=== PATIENT | female | born 1980 | race Caucasian/White ===

== ENCOUNTER 2018-09-28 07:25 | Inpatient (IN) | payer BC ==
[~2018-09-28 07:25] MED LIST: Buffered Lidocaine 1% SYRIN* 1 ML/SYRINGE INTRADERM ONE; Dexamethasone IV* 4 MG/ML 1 ML (4 MG) IV SLOW PU ONE; Famotidine IV* 10 MG/ML 2 ML (20 mg) IV ONE; Lactated Ringers 1000 ML Bag* 1,000 ML IV SCH
[2018-09-28] MEDS ORDERED: fentaNYL* 50 MCG/ML 5 ML VIAL (250 MCG VIAL) ONE (08:09)
[2018-09-28] MEDS ORDERED: Rocuronium* 10 MG/ML VIAL ONE (08:10)
[2018-09-28] MEDS ORDERED: Propofol* 10 MG/ML 20 ML BTL ONE (08:10)
[2018-09-28] MEDS ORDERED: Ondansetron INJ* 2 MG/ML VIAL ONE (08:10)
[2018-09-28] MEDS ORDERED: Lidocaine 2% PF * 5 ML VIAL ONE (08:10)
[2018-09-28] MEDS ORDERED: Ketorolac INJ* 30 MG/ML 1 ML VIAL ONE (08:10)
[2018-09-28] MEDS ORDERED: Midazolam* 1 MG/ML 5 ML VIAL (5 MG) ONE (08:10)
[2018-09-28] MEDS ORDERED: Clindamycin 900 MG/D5W BAG(*) 900 MG/50 ML BAG IVPB ONE ×2 (08:18→09:27)
[2018-09-28] MEDS ORDERED: Famotidine IV* 10 MG/ML 2 ML (20 mg) ONE (08:18)
[2018-09-28] MEDS ORDERED: Dexamethasone IV* 4 MG/ML 1 ML (4 MG) ONE (08:18)
[2018-09-28] MEDS ORDERED: Ciprofloxacin 400MG IVPREMIX(* 400 MG/200 ML BAG ONE (08:19)
[2018-09-28] MEDS ORDERED: Heparin VIAL(*) 5000 UNITS/ML VIAL (FIVE THOUSAND) ONE (08:20)
[2018-09-28] MEDS ORDERED: Neostigmine Methylsulfate* 1 MG/ML 10 ML VIAL (1 mg/ml) ONE (08:30)
[2018-09-28] MEDS ORDERED: Glycopyrrolate IV* 0.2 MG/ML 1 ML VIAL ONE ×2 (08:30→09:41)
[2018-09-28] MEDS ORDERED: Methylene Blue 0.5 %* 50 MG/10 ML AMP IV ONE (09:02)
[2018-09-28] MEDS ORDERED: Bupivacaine 0.25% W/EPI* 10 ML SDV ONE ×2 (09:02→09:47)
[2018-09-28] MEDS ORDERED: Sugammadex * 200 MG/2 ML VIAL IV PUSH ONE (09:03)
[2018-09-28] MEDS ORDERED: fentaNYL* 50 MCG/ML 2 ML VIAL (100 MCG VIAL) ONE ×3 (09:54→12:16)
[2018-09-28] MEDS ORDERED: Ondansetron INJ* 2 MG/ML VIAL IV PRN (10:19)
[2018-09-28] MEDS ORDERED: Scopolamine 1.5 mg* PATCH TRANSDERM PRN (10:19)
[2018-09-28] MEDS ORDERED: HYDROmorphone INJ1* 1 MG/ML SYRINGE IV PRN (10:19)
[2018-09-28] MEDS ORDERED: DiMENhydriNATE IV* 50 MG/ML VIAL IV PUSH PRN (10:19)
[2018-09-28] MEDS ORDERED: Naloxone* 0.4 MG/ML 1 ML VIAL IV PRN (10:19)
--- NOTE | 2018-09-28 12:00 | OP ---
Operative Report - Blank - Operative Report Date of Operation: 09/28/18 Note: Brief Operative Note Preop Dx: Morbid obesity Postop Dx: same Procedure: laparoscopic sue en y gastric bypass Anesthesia: GET Surgeon: Vik Inspector Hairspring: RAJNI Smith; LISA Dawkins Fluids: 1600 ml crystalloid EBL: 60 ml Specimen: none Drains: none Findings: dictated
[2018-09-28] MEDS ORDERED: Acetaminophen ADULT LIQ* 650 MG/20.3 ML UDC PO PRN (12:03)
[2018-09-28] MEDS ORDERED: Mometasone/Formoter 200/5 MDI INH PRN (12:09)
[2018-09-28] MEDS ORDERED: Albuterol HFA INHALER* 8 gm MDI INH PRN (12:09)
[2018-09-28] MEDS: fentaNYL* 50 MCG/ML 2 ML VIAL (100 MCG VIAL) IV PRN ×2 (12:17→12:39)
[2018-09-28] MEDS ORDERED: DiMENhydriNATE IV* 50 MG/ML VIAL ONE (13:30)
[2018-09-28] MEDS: Lactated Ringers 1000 ML Bag* 1,000 ML IV SCH ×2 (13:54→20:46)
[2018-09-28] MEDS: Ondansetron INJ* 2 MG/ML VIAL IV PRN (14:50)
[2018-09-28] MEDS: Ketorolac INJ* 30 MG/ML 1 ML VIAL IV PRN (16:50)
[2018-09-28] MEDS: Morphine INJ* 2 MG/ML 1 ML SYRINGE (TWO MG - NEW SYRINGE VERSION) IV PRN ×3 (17:31→22:52)
--- NOTE | 2018-09-28 20:43 | OP ---
CC: [facility]; Dr. Demetrius Cummings * DATE OF OPERATION: 09/28/18 - ROOM #339 DATE OF : 82 SURGEON: Karri Chery MD IC ENGINEER: LISA Rolon ANESTHESIOLOGIST: Dr. Peralta. ANESTHESIA: General anesthesia. PRE-OP DIAGNOSIS: Clinically severe obesity. POST-OP DIAGNOSIS: Clinically severe obesity. OPERATIVE PROCEDURE: Laparoscopic Michelet-en-Y gastric bypass. ESTIMATED BLOOD LOSS: 60 cc. FLUIDS: 1600 cc of crystalloid fluid given. SPECIMEN: None. DRAINS: None. DESCRIPTION OF PROCEDURE: The patient was identified in the preoperative area, she was marked, consent was signed after discussion of the case with her and her , including diagrams. The patient was then brought to the operating room, placed on the operating table in the supine position. Preoperative antibiotics were given. Sequential devices were placed on bilateral lower extremities and general anesthesia was induced. The patient's abdomen was prepped and draped in the standard surgical fashion and a time-out was performed. Folds of the umbilicus were elevated anteriorly and a Veress needle inserted into the abdominal cavity, which was then allowed to insufflate to a pressure of 15 mmHg. The patient tolerated the insufflation well. Calhoun between the xiphoid and the umbilicus, a 12 mm trocar was inserted. Laparoscope was inserted through this and there was no evidence of injury from the trocar insertion over the Veress needle which was then removed. Additional 12 mm and 5 mm trocars were placed in the left upper quadrant and 5 mm and 12 mm in the right upper quadrant. A review of the abdomen showed normal- appearing bowel, no free fluid, liver was within normal limits. We then placed a Lio retractor through a subxiphoid incision and retracted the liver anteriorly to the right, exposing the gastro-esophageal fat pad. This fat pad was grasped and retracted towards the right lower quadrant. Blunt dissection along with sharp dissection was carried out to expose the left stanton. Next, attention was turned towards the lesser curvature. At approximately the third crossing vessel, a retrogastric tunnel was made and a 45 mm luque FRANK stapling device was fired along this. We completed the stomach pouch with 2 additional 60 mm luque FRANK stapling devices. We did cross these at the mid portion of the first staple line and extended this towards the left stanton and performed this over an Thomas tube for resizing purposes. We used a hemoclip to gain hemostasis at the lesser curvature staple line, and then next, we retracted the omentum cephalad. Transverse colon was identified and ligament of Treitz clearly identified. Approximately 45 cm was counted off from the ligament of Treitz, this would become the biliopancreatic limb in the appropriate orientation, the antimesenteric aspect of it was sutured to the stapled edge of the stomach pouch. The stay sutures were in place to help with the gastrojejunostomy anastomosis which was performed after making an enterotomy and gastrotomy with a 30 mm luque FRANK stapling device. These were mated and we fired almost the entire cartridge. The opening was wide open without evidence of bleeding. We then sutured the common defect with interrupted 3-0 PDS sutures starting at both ends and tying them in the middle. Next, the Thomas tube was placed through the anastomosis with ease into the Michelet limb. Next, we transected the small bowel just at the site of the gastrojejunostomy with 60 mm luque FRANK stapling device and then next the anastomosis was tested using methylene blue through the Thomas tube after placing a gauze behind the anastomosis. Obstructing at the proximal Michelet limb in a standard fashion, we injected methylene blue which remained in the intraluminal throughout and I did distend the proximal Michelet limb and the small portion of the stomach pouch with ease. No leaking was identified and gauze was removed. Review of the cut staple end of the gastric remnant showed an area of oozing. Hemoclip was placed to this. Similarly, we saw an area on the staple line of the pouch and another hemoclip was placed at this site. At this point, I placed a small portion of the Surgicel overlying the staple line of the pouch and placed gauze in this area. Next, we counted off approximately 85 cc from the gastrojejunostomy that would become the Michelet limb. This was brought in apposition taking care to orient the mesentery in the appropriate fashion and placed in apposition to the distal end of the biliopancreatic limb that had just been cut. Enterotomies were made and a jejunojejunostomy was created with a 60 mm luque FRANK stapling device. Common defect was reapproximated with interrupted 2-0 silk sutures as was the mesenteric defect. We irrigated and suctioned out the effluent. Hemostasis was achieved. The gauze at the area of the liver was removed and liver retractor was removed as well. Hemostasis was excellent. The anastomosis appeared in appropriate positioning and all bowel was in the appropriate orientation. The abdomen was allowed to collapse. Trocars were removed under direct vision and all skin incisions were reapproximated with 4-0 Monocryl subcuticular sutures followed by sterile dressing. [id number]/[facility] #: [id number] [facility]NING HOSPITALSamantha
[2018-09-28] MEDS: Heparin VIAL(*) 5000 UNITS/ML VIAL (FIVE THOUSAND) SUBCUT SCH (21:33)
[2018-09-28] MEDS: Famotidine IV* 10 MG/ML 2 ML (20 mg) IV SLOW PU SCH (21:34)
[2018-09-29] MEDS: Ketorolac INJ* 30 MG/ML 1 ML VIAL IV PRN ×3 (02:21→20:22)
[2018-09-29] MEDS: Lactated Ringers 1000 ML Bag* 1,000 ML IV SCH ×2 (03:13→10:01)
[2018-09-29] MEDS: Morphine INJ* 2 MG/ML 1 ML SYRINGE (TWO MG - NEW SYRINGE VERSION) IV PRN ×2 (03:40→06:00)
[2018-09-29] MEDS: Heparin VIAL(*) 5000 UNITS/ML VIAL (FIVE THOUSAND) SUBCUT SCH ×3 (06:00→21:56)
[2018-09-29 06:01] LABS: ABS Basophils 0 10^3/ul (0-0.2); ABS Eosinophils 0 10^3/ul (0-0.6); ABS Lymphocytes 1.3 10^3/ul (1.0-4.8); ABS Monocytes 0.5 10^3/ul (0-0.8); ABS Neutrophils 6.9 10^3/ul (1.5-7.7); ABS Nucleated RBC 0 10^3/ul; Eosinophil % 0.1 %; Hematocrit 37 % (35-47); Hemoglobin 12.2 g/dl (12.0-16.0); Lymphocyte % 14.6 %; Mean Corpuscular HGB Conc 33 g/dl (31-36); Mean Corpuscular Hemoglobin 29 pg (27-31); Mean Corpuscular Volume 87 fL (80-97); Mean Platelet Volume 7.8 fL (7.4-10.4); Nucleated Red Blood Cells % 0; Platelet Count 181 10^3/ul (150-450); Red Blood Count 4.23 10^6/ul (4.00-5.40); Red Cell Distribution Width 13 % (10.5-15); White Blood Count 8.7 10^3/ul (3.5-10.8)
[2018-09-29] MEDS: Famotidine IV* 10 MG/ML 2 ML (20 mg) IV SLOW PU SCH ×2 (09:55→20:17)
--- NOTE | 2018-09-29 10:38 | PN ---
Progress Note - Progress Note Date of Service: 09/29/18 Note: S: seen earlier by Dr. Chery. No further nausea; would like to try to drink. Pain well controlled. O: Vital Signs - 8 hr 09/29/18 09/29/18 09/29/18 03:40 03:41 04:40 Temperature 98.2 F Pulse Rate 71 Respiratory 18 18 16 Rate Blood Pressure 142/52 (mmHg) O2 Sat by Pulse 98 Oximetry 09/29/18 09/29/18 09/29/18 04:44 06:00 07:45 Temperature 97.9 F Pulse Rate 64 Respiratory 18 16 Rate Blood Pressure 112/46 (mmHg) O2 Sat by Pulse 98 95 Oximetry 09/29/18 09/29/18 08:00 10:34 Temperature Pulse Rate Respiratory 16 18 Rate Blood Pressure (mmHg) O2 Sat by Pulse Oximetry Intake and Output Last 24 Hours 09/27/18 09/28/18 09/29/18 09/30/18 06:59 06:59 06:59 06:59 Intake Total 3820 987 Output Total 1500 Balance 2320 987 Weight 254 lb Intake: IV Fluids 3820 987 CLINDAMYCIN 900MG IV 50 LR 3770 987 Oral 0 Output: Urine 1500 Other: Estimated Void Large # Bowel Movements [address] Chery Abd: lap site bandages clean and dry UGI: ok (no leak) A: s/p lap sleeve gastrectomy, doing well P: start esau clears; likely home 09/30
[2018-09-29] MEDS: D5W 1/2 NS KCl 20 Meq 1000 ML* 1,000 ML IV SCH ×2 (13:05→21:12)
[2018-09-29] MEDS: HYDROcodone/ACET. 7.5/325 LIQ* 15 ML UDC PO PRN ×2 (13:05→18:30)
[2018-09-29] MEDS: Ondansetron INJ* 2 MG/ML VIAL IV PRN (20:13)
[2018-09-30] MEDS: Morphine INJ* 2 MG/ML 1 ML SYRINGE (TWO MG - NEW SYRINGE VERSION) IV PRN (00:19)
[2018-09-30] MEDS: HYDROcodone/ACET. 7.5/325 LIQ* 15 ML UDC PO PRN (02:06)
[2018-09-30] MEDS: D5W 1/2 NS KCl 20 Meq 1000 ML* 1,000 ML IV SCH (05:10)
[2018-09-30] MEDS: Heparin VIAL(*) 5000 UNITS/ML VIAL (FIVE THOUSAND) SUBCUT SCH (06:24)
[2018-09-30] MEDS: Famotidine IV* 10 MG/ML 2 ML (20 mg) IV SLOW PU SCH (09:42)
[2018-09-30 09:53] VITALS: BP 124/45
--- NOTE | 2018-09-30 10:40 | DS ---
AMENDED REPORT NOW INCLUDES COSIGNER DESIGNATION CC: Dr. Demetrius Cummings * DATE OF ADMISSION: 09/28/2018. DATE OF DISCHARGE: 09/30/2018. ATTENDING SURGEON: Dr. Karri Chery * (dictated by Kimberly Smith NP). HOSPITAL COURSE: Please refer to admission history and physical for admission details. The patient was taken to the operating room on Thursday, September 282018 and underwent laparoscopic Michelet-en-Y gastric bypass by Dr. Chery. She had mild postoperative nausea which has resolved and has had an otherwise uneventful postoperative course. She required minimal pain medication and was able to meet the criteria for oral intake of bariatric clear liquids. She was ambulating in the halls and using her Inspiron. She has met criteria for discharge. PHYSICAL EXAMINATION: General: Well-appearing, in no acute distress. Vital Signs: Temperature 98.3, heart rate 58, respiratory rate 18, O2 saturation on room air 94 percent, blood pressure 100/48. Lungs: Breath sounds bilaterally clear and equal. Heart: Regular rate and rhythm. No murmurs or rubs appreciated. Abdomen: Active bowel sounds. Laparoscopic port sites are intact with Steri-Strips. There is no surrounding erythema or drainage. Abdomen: Soft with mild incisional tenderness. Skin: Warm and dry. IMPRESSION: Status post laparoscopic Michelet-en-Y gastric bypass, doing extremely well. PLAN: Discharge home today. Instructions were reviewed with the patient. She has a follow-up appointment with Dr. Chery on Wednesday, October 03, 2018. All of her medications were reviewed and she has a prescription for liquid Hydrocodone/acetaminophen at home and she knows that she can use adult strength liquid Tylenol for milder pain. MARIANNE SMITH NP [id number]/[facility] #: [id number] [place]
[2018-10-01] MEDS ORDERED: Scopolamine PATCH Remove* 1 NOTE MISC PATCH OFF ONE (16:30)
== END 2018-09-30 10:10 | disposition home or self-care (01) | DRG 403 ==
LOC: AA 07:25 → SSU 13:45
PROVIDERS: ADMIT Surgery; ATTEND Surgery
PROC: 0D164ZA Bypass Stomach to Jejunum, Percutaneous Endoscopic Approach (ICD-10-PCS; principal; 2018-09-28 09:15)
DX: E66.01 Morbid (severe) obesity due to excess calories (principal); F41.9 Anxiety disorder, unspecified; F32.9 Major depressive disorder, single episode, unspecified; M79.7 Fibromyalgia; G47.33 Obstructive sleep apnea (adult) (pediatric); J45.909 Unspecified asthma, uncomplicated; Z83.3 Family history of diabetes mellitus; Z82.49 Family history of ischemic heart disease and other diseases of the circulatory system; Z68.41 Body mass index [BMI] 40.0-44.9, adult; Z88.1 Allergy status to other antibiotic agents; Z88.8 Allergy status to other drugs, medicaments and biological substances; Z83.49 Family history of other endocrine, nutritional and metabolic diseases; Z81.8 Family history of other mental and behavioral disorders; Z87.891 Personal history of nicotine dependence; R11.0 Nausea
CPT/HCPCS: 36415; 43644; 74246; 81025; 85025; A9270-GY; C1776; J0744; J1100; J1240; J1644; J1885; J2250; J2270; J2405; J2704; J2710; J3010